=== PATIENT | male | born 1995 | race Caucasian/White ===

== ENCOUNTER 2016-11-28 00:57 | Emergency (ER) | payer BC ==
[2016-11-28 01:08] VITALS: BP 145/91
[2016-11-28] MEDS ORDERED: Acetaminophen TAB* 325 MG PO ONE (02:35)
[2016-11-28] MEDS ORDERED: Amoxicillin CAP* 250 MG PO ONE (02:35)
--- NOTE | 2016-11-28 02:39 | ED ---
Throat Pain/Nasal Congestion - HPI Summary HPI Summary: Pt here w/ Rt sided tooth ache/facial pain x - History of Current Complaint Chief Complaint: EDDentalPain Time Seen by Provider: 11/28/16 01:17 - Allergies/Home Medications Allergies/Adverse Reactions: Allergies Allergy/AdvReac Type Severity Reaction Status Date / Time Lactose Intolerance (GI) Allergy Unknown Unknown Verified 05/11/13 11:17 Reaction Details PMH/Surg Hx/FS Hx/Imm Hx Endocrine/Hematology History: Denies: Hx Diabetes, Hx Thyroid Disease Cardiovascular History: Denies: Hx Hypercholesterolemia, Hx Hypertension, Hx Peripheral Vascular Disease Musculoskeletal History: Denies: Hx Arthritis, Hx Osteoporosis Sensory History: Denies: Hx Cataracts, Hx Contacts or Glasses, Hx Glaucoma Opthamlomology History: Denies: Hx Cataracts, Hx Contacts or Glasses, Hx Glaucoma Neurological History: Reports: Other Neuro Impairments/Disorders - hx concussion Denies: Hx Headaches, Hx Seizures, Hx Transient Ischemic Attacks (TIA) Psychiatric History: Denies: Hx Anxiety, Hx Depression Infectious Disease History: No Infectious Disease History: Reports: Hx of Known/Suspected MRSA Denies: Traveled Outside the [place] in Last 30 Days - Family History Known Family History: Positive: None Family History: R & n/C - Social History Alcohol Use: None Hx Substance Use: No Substance Use Type: Reports: None Hx Tobacco Use: No Smoking Status (MU): Never Smoked Tobacco Physical Exam Vital Signs On Initial Exam: Initial Vitals Temp Pulse Resp BP Pulse Ox 97.8 F 73 16 145/91 100 11/28/16 01:07 11/28/16 01:07 11/28/16 01:07 11/28/16 01:07 11/28/16 01:07 Procedures - Procedure Summary Procedure Summary: #30 w/ decay along buccal border - applied cetacaine spray and sealed w/ Dycal - pt tolerated well and pain resolved Diagnostics - Vital Signs Vital Signs Temp Pulse Resp BP Pulse Ox 11/28/16 01:07 97.8 F 73 16 145/91 100 - Laboratory Lab Statement: Any lab studies that have been ordered have been reviewed, and results considered in the medical decision making process. EENT Course/Dx - Diagnoses Provider Diagnoses: Pain, dental, Dental decay Discharge - Discharge Plan Condition: Stable Disposition: HOME Prescriptions: Acetaminop/Codeine 30 MG TAB* [Tylenol/Codeine 30 MG TAB*] 1 tab PO Q6H PRN #15 tab MDD 4 PRN Reason: Pain Amoxicillin CAP* [Amoxicillin 500 MG CAP*] 500 mg PO TID #30 cap Patient Education Materials: Toothache (ED) Referrals: Sergey Hodges MD [Primary Care Provider] - Additional Instructions: Consume liquids and soft foods to maintain hydration and nutrition. Avoid chewing foods to prevent premature erosion of temporary seal over affected tooth. You may continue ibuprofen alternating with acetaminophen for pain. Complete antibiotics and follow-up with dentist this week. *If you develop headache, fever, difficulty breathing or swallowing, return to ED
== END 2016-11-28 02:46 | disposition home or self-care (01) ==
LOC: ED 00:57
DX: K02.9 Dental caries, unspecified (principal); K08.89 Other specified disorders of teeth and supporting structures; Z86.14 Personal history of Methicillin resistant Staphylococcus aureus infection
CPT/HCPCS: 99282; A9270-GY